=== PATIENT | male | born 1980 | race Caucasian/White ===

== ENCOUNTER 2025-01-12 14:38 | Emergency (ER) | payer MEDICAID ==
[~2025-01-12] VITALS: Ht 175.3 cm; Wt 103.0 kg
[2025-01-12 14:45] VITALS: O2SAT 97
[2025-01-12 14:50] VITALS: RESP 18; TEMP 36.9
[2025-01-12] MEDS ORDERED: LIDOCAINE HCL 1% 20ML VIAL INFIL ONE (16:00)
[2025-01-12] MEDS: BACITRACIN ZINC OINT UDPKT TOP ONE (16:00)
[2025-01-12] MEDS ORDERED: TETANUS, DIPHTHERIA, PERTUSSIS VAC/PF 0.5ML (>10YR OLD) IM ONE (16:00)
[2025-01-12] MEDS ORDERED: ACET-2708 MT (17:08)
[2025-01-12] MEDS ORDERED: BO1 TP (17:08)
[2025-01-12] MEDS: ACETAMINOPHEN 500MG TABLET PO ONE (17:41)
[2025-01-12] MEDS: BACITRACIN ZINC OINT UDPKT TOP NR (17:41)
[2025-01-12 17:42] VITALS: BP 155/88; PULSE 89; O2SAT 96
== END 2025-01-12 17:48 | disposition home or self-care (01) ==
LOC: ER 14:38 → EDBD 14:38 → ER 17:48
DX: S01.411A Laceration without foreign body of right cheek and temporomandibular area, initial encounter (principal); W19.XXXA Unspecified fall, initial encounter; Y93.89 Activity, other specified; Y92.009 Unspecified place in unspecified non-institutional (private) residence as the place of occurrence of the external cause; Y99.8 Other external cause status
CPT/HCPCS: 12015; 99284; J2003; Z7610 ×2; 12016

== ENCOUNTER 2025-01-19 13:31 | Emergency (ER) | payer MEDICAID ==
[~2025-01-19] VITALS: Ht 177.8 cm; Wt 102.0 kg
[~2025-01-19 13:31] MED LIST: ACET-2708 MT; BO1 TP
[2025-01-19 13:42] VITALS: O2SAT 98
[2025-01-19 14:43] VITALS: BP 117/68; PULSE 90; RESP 18; TEMP 36.7; O2SAT 98
== END 2025-01-19 14:45 | disposition home or self-care (01) ==
LOC: ER 13:31
DX: S01.411D Laceration without foreign body of right cheek and temporomandibular area, subsequent encounter (principal); X58.XXXD Exposure to other specified factors, subsequent encounter
CPT/HCPCS: 99282

== ENCOUNTER 2025-02-16 08:53 | Emergency (ER) | payer MEDICAID ==
[~2025-02-16] VITALS: Ht 172.7 cm; Wt 105.0 kg
[2025-02-16 09:04] VITALS: O2SAT 100
[2025-02-16] MEDS: FLUORESCEIN SODIUM 1MG/STRIP RIGHTEYE ONE (09:19)
[2025-02-16] MEDS: TETRACAINE 0.5% OPHTH DROPS 4ML BOTHEYE ONE (09:20)
[2025-02-16] MEDS ORDERED: OCUFLX RIGHTEYE (11:22)
[2025-02-16 11:33] VITALS: BP 119/75; PULSE 87; RESP 18; TEMP 36.7; O2SAT 99
== END 2025-02-16 11:37 | disposition home or self-care (01) ==
LOC: ER 09:06
DX: S05.01XA Injury of conjunctiva and corneal abrasion without foreign body, right eye, initial encounter (principal); H11.30 Conjunctival hemorrhage, unspecified eye; X58.XXXA Exposure to other specified factors, initial encounter; Y93.89 Activity, other specified; Y92.89 Other specified places as the place of occurrence of the external cause; Y99.8 Other external cause status
CPT/HCPCS: 99283